=== PATIENT | male | born 1985 | race Two or more races ===

== ENCOUNTER 2020-05-21 00:26 | Emergency (ER) | payer OTHER ==
[~2020-05-21] VITALS: Ht 167.6 cm; Wt 91.3 kg
[2020-05-21] MEDS ORDERED: ASPIRIN 325 MG TABLET PO ONE (01:00)
[2020-05-21 01:14] LABS: BASOPHILS % (AUTO) 0 % (0-1); EOSINOPHILS % (AUTO) 0 % (1-7); LYMPHOCYTES % (AUTO) 14 % (22-44); MEAN CORPUSCULAR HEMOGLOBIN 30.1 pg (27.5-34.5); MEAN CORPUSCULAR HGB CONC 35.4 g/dL (33.2-36.2); MEAN PLATELET VOLUME 8.3 fL (7.4-10.4); MONOCYTES % (AUTO) 9 % (2-9); NEUTROPHILS % (AUTO) 77 % (42-75); PLATELET COUNT 183 x10^3/uL (130-400); RED BLOOD COUNT 5.63 x10^6/uL (4.38-5.82); RED CELL DISTRIBUTION WIDTH 14.3 % (9.4-14.8)
[2020-05-21 01:16] LABS: MD NO
[2020-05-21 01:25] LABS: ALANINE AMINOTRANSFERASE 75 U/L (12-78); ALBUMIN 3.9 g/dL (3.4-5.0); ANION GAP 9 mmol/L (5-15); CALCIUM 7.9 mg/dL (8.5-10.1); CHLORIDE 99 mmol/L (98-107); CREATININE 0.84 mg/dL (0.7-1.3)
[2020-05-21 01:30] LABS: ALKALINE PHOSPHATASE 112 U/L (45-117); BILIRUBIN,TOTAL 1.2 mg/dL (0.2-1.0); TOTAL PROTEIN 7.8 g/dL (6.4-8.2); TROPONIN I < 0.015 ng/mL (0.000-0.045)
[2020-05-21] MEDS ORDERED: ONDANSETRON ODT 4 MG ONE (03:53)
[2020-05-21] MEDS ORDERED: ASPIRIN 325 MG TABLET ONE (03:53)
[2020-05-21] MEDS ORDERED: LORazepam 1MG TABLET ONE (03:54)
[2020-05-21] MEDS ORDERED: SODIUM CHLORIDE FLUSH 10ML SYR IVF ONE (04:00)
[2020-05-21] MEDS ORDERED: ONDANSETRON ODT 4 MG PO ONE (04:00)
[2020-05-21] MEDS ORDERED: SODIUM CHLORIDE 0.9% 1,000ML IVBOLUS ONE (04:00)
[2020-05-21] MEDS ORDERED: LORazepam 1MG TABLET PO ONE (04:00)
[2020-05-21] MEDS ORDERED: MORPHINE SULFATE 4 MG/ML, 1ML IVPush PRN (04:30)
--- NOTE | 2020-05-21 05:14 | NUR ---
Devyn key in ED - 05/21/20 at 0515 by LATESHA RN ATTEMPTED TO CONTACT CPS FOR ASSISTANCE FINDING PT'S PARENTS. NO ANSWER
[2020-05-21 05:17] VITALS: BP 154/94
[2020-05-21] MEDS ORDERED: OMNIPAQUE 350 MG/ML, 100ML BOTTLE ONE (05:25)
== END 2020-05-21 06:56 | disposition home or self-care (01) ==
LOC: ED 04:39
DX: K52.9 Noninfective gastroenteritis and colitis, unspecified (principal); R10.32 Left lower quadrant pain; R10.12 Left upper quadrant pain; R00.0 Tachycardia, unspecified; I49.3 Ventricular premature depolarization; R11.2 Nausea with vomiting, unspecified; I10 Essential (primary) hypertension
CPT/HCPCS: 36415; 71045; 74177; 80053; 80320; 83690; 84484; 85025; 93005; 96360; 99285; J7030; Q9967; G0480